=== PATIENT | male | born 1960 | race Caucasian/White ===

== ENCOUNTER 2024-03-31 18:59 | Inpatient (IN) | payer MEDICARE, OTHER ==
[~2024-03-31] VITALS: Ht 160 cm; Wt 78.2 kg
[2024-03-31 21:07] LABS: BASOPHILS % (AUTO) 0.6 % (0.0-2.0); EOSINOPHILS % (AUTO) 2.5 % (1.0-6.0); HEMATOCRIT 40.3 % (41-53); HEMOGLOBIN 13.8 g/dL (13.5-17.5); LYMPHOCYTES # (AUTO) 1.3 K/uL (1.0-4.8); LYMPHOCYTES % (AUTO) 20.5 % (22.0-44.0); MEAN CORPUSCULAR HEMOGLOBIN 31.6 pg (26.0-34.0); MEAN CORPUSCULAR HGB CONC 34.4 G/dL (31.0-37.0); MEAN CORPUSCULAR VOLUME 92 fL (80-100); MONOCYTES # (AUTO) 0.7 K/uL (0.1-1.0); MONOCYTES % (AUTO) 11.5 % (2.0-9.0); NEUTROPHILS % (AUTO) 64.9 % (40.0-70.0); PLATELET COUNT (AUTO) 173 K/uL (150-450); RED BLOOD CELL COUNT(AUTO) 4.39 MIL/uL (4.50-5.90); RED CELL DISTRIBUTION WIDTH 13.1 % (11.5-14.5); WHITE BLOOD COUNT (AUTO) 6.1 K/uL (4.5-11.0)
[2024-03-31 21:24] LABS: CALCIUM, TOTAL 8.4 mg/dL (8.8-10.5); CARBON DIOXIDE 29 mmol/L (22-29); CREATININE 1.13 mg/dL (0.60-1.30); GLOMERULAR FILTR. RATE CALC > 60 mL/min (>60); GLUCOSE,RANDOM 310 mg/dL (70-110); UREA NITROGEN, BLOOD 19 mg/dL (7-18)
[2024-03-31 21:30] LABS: ANION GAP 6 mmol/L (8-16); CHLORIDE 101 mmol/L (98-107); POTASSIUM 3.8 mmol/L (3.5-5.1); SODIUM SERUM 136 mmol/L (136-145)
[2024-03-31 21:41] LABS: ALCOHOL, BLOOD (SERUM) < 3 mg/dL (0-10)
[2024-03-31 21:47] LABS: SALICYLATE 0.8 mg/dL (2.8-20.0)
[2024-03-31 21:52] LABS: ACETAMINOPHEN < 2 mcg/mL (10-30)
[2024-03-31] MEDS ORDERED: LOPERAMIDE HCL 2 MG CAPSULE PO PRN (23:30)
[2024-03-31] MEDS ORDERED: ZOLPIDEM TARTRATE 10 MG TABLET PO PRN (23:30)
[2024-03-31] MEDS ORDERED: GuaiFENesin/D-METHORPHAN [SUGAR-FREE] 200-20MG/10 ML SYRUP UDCUP PO PRN (23:30)
[2024-03-31] MEDS ORDERED: HydrOXYzine PAMOATE 50 MG CAPSULE PO PRN (23:30)
[2024-03-31] MEDS ORDERED: TUBERCULIN, PURIFIED PROTEIN DERIVATIVE 5 TU/0.1 ML SYRINGE ID ONE (23:30)
[2024-03-31] MEDS ORDERED: MAGNESIUM HYDROXIDE SUSPENSION 30 ML UDCUP PO PRN (23:30)
[2024-03-31] MEDS ORDERED: ACETAMINOPHEN 325 MG TABLET PO PRN (23:30)
[2024-03-31] MEDS ORDERED: PROMETHAZINE HCL 25 MG TABLET PO PRN (23:30)
[2024-03-31] MEDS ORDERED: MAG HYDROX/ALUMINUM HYD/SIMETH ES 30 ML SUSPENSION UDCUP PO PRN (23:30)
[2024-03-31 23:38] LABS: PH,URINE DRUG SCREEN 6.5 (5.0-8.0)
[2024-03-31 23:46] LABS: AMPHET/METH SCREEN,URINE NEGATIVE (NEGATIVE); BARBITURATE SCREEN, URINE NEGATIVE (NEGATIVE); BENZODIAZEPINES SCREEN,URINE NEGATIVE (NEGATIVE); CANNABINOID SCREEN,URINE NEGATIVE (NEGATIVE); COCAINE SCREEN,URINE NEGATIVE (NEGATIVE); METHADONE SCREEN, URINE NEGATIVE (NEGATIVE); OPIATE SCREEN,URINE NEGATIVE (NEGATIVE); PHENCYCLIDINE SCREEN,URINE NEGATIVE (NEGATIVE)
[2024-03-31 23:49] LABS: ALCOHOL, URINE DRUG SCREEN NEGATIVE (NEGATIVE)
[2024-04-01 00:38] LABS: CHOL/HDL RATIO 3.1 (4.2-7.3); FREE T4 (FREE THYROXINE) 0.89 ng/dL (0.76-1.46); THYROID STIMULATING HORMONE 1.54 uIU/mL (0.36-3.74)
[2024-04-01 00:40] LABS: HEMOGLOBIN A1C 7.1 % (3.8-5.6)
[2024-04-01 06:18] LABS: COVID AG,FIA SOURCE NASAL SWAB
[2024-04-01 06:41] LABS: SARS-COV2 (COVID) ANTIGEN,FIA Negative (Negative)
[2024-04-01] MEDS: FOLIC ACID 1 MG TABLET PO SCH (08:24)
[2024-04-01] MEDS: THIAMINE 100 MG TABLET PO SCH (08:24)
[2024-04-01] MEDS: LORazepam 2 MG TABLET PO PRN (08:24)
[2024-04-01] MEDS: MULTIVITAMINS WITH MINERALS, THERAPEUTIC TABLET PO SCH (08:24)
[2024-04-01] MEDS: FLUoxetine HCL 20 MG CAPSULE PO SCH (09:32)
[2024-04-01] MEDS: NALTREXONE HCL 50 MG TABLET PO SCH (09:32)
[2024-04-01] MEDS ORDERED: TRIA60LO TP (10:48)
[2024-04-01] MEDS ORDERED: BUME2TAB PO (10:48)
[2024-04-01] MEDS ORDERED: HYDR-4061 PO (10:48)
[2024-04-01] MEDS ORDERED: HYDR25TA84 PO (10:48)
[2024-04-01] MEDS ORDERED: TRAM50TA5 PO (10:48)
[2024-04-01] MEDS ORDERED: BUSP15 PO (10:48)
[2024-04-01] MEDS ORDERED: VENL-193 PO (10:48)
[2024-04-01] MEDS ORDERED: CARV12.530 PO (10:48)
[2024-04-01] MEDS ORDERED: INSU100I56 SQ (10:48)
[2024-04-01] MEDS ORDERED: QUET25TA PO (10:48)
[2024-04-01] MEDS ORDERED: RISP0.2515 PO (10:48)
[2024-04-01] MEDS ORDERED: ENOX40DI9 SQ (10:48)
[2024-04-01] MEDS ORDERED: INSU100I94 SQ (10:48)
[2024-04-01] MEDS ORDERED: ZOLPIDEM TARTRATE 5 MG TABLET PO PRN (12:15)
[2024-04-01] MEDS ORDERED: MAGNESIUM HYDROXIDE SUSPENSION 30 ML UDCUP PO PRN (12:15)
[2024-04-01] MEDS ORDERED: DEXTROSE 50%-WATER 25 GM/50 ML SYRINGE IVP PRN (12:30)
[2024-04-01] MEDS: INSULIN LISPRO 100 UNITS/ML SQ PRN (15:14)
[2024-04-01] MEDS: HEPARIN SODIUM,PORCINE 5,000 UNITS/ML VIAL SQ SCH (15:15)
[2024-04-01 16:00] VITALS: BP 140/85; PULSE 55; RESP 18; TEMP 97.6; O2SAT 98
[2024-04-01 16:20] VITALS: BP 140/83; PULSE 55; RESP 18; TEMP 97.6; O2SAT 98
[2024-04-01 17:06] LABS: GLUCOMETER DEV NAME(LOC) ERT.6; GLUCOSE,POINT OF CARE 183 MG/DL (70-110)
[2024-04-01 20:10] VITALS: BP 169/96; PULSE 54; RESP 18; TEMP 97.8; O2SAT 97
[2024-04-01 21:30] VITALS: BP 140/87; PULSE 53; RESP 18; TEMP 98; O2SAT 97
[2024-04-01] MEDS: MELATONIN 5 MG TABLET PO SCH (21:35)
[2024-04-01] MEDS: OLANZapine 5 MG RAPDIS TABLET PO SCH (21:35)
[2024-04-01] MEDS: ACETAMINOPHEN 325 MG TABLET PO PRN (21:36)
[2024-04-01 21:51] LABS: GLUCOMETER DEV NAME(LOC) 5S.2D; GLUCOSE,POINT OF CARE 212 MG/DL (70-110)
[2024-04-02 00:30] VITALS: BP 108/72; PULSE 54; RESP 18; TEMP 97.1; O2SAT 97
[2024-04-02 04:46] VITALS: BP 143/79; PULSE 55; RESP 18; TEMP 97.8; O2SAT 96
[2024-04-02 06:49] LABS: BASOPHILS % (AUTO) 0.6 % (0.0-2.0); EOSINOPHILS % (AUTO) 2.6 % (1.0-6.0); HEMATOCRIT 39.8 % (41-53); HEMOGLOBIN 13.9 g/dL (13.5-17.5); LYMPHOCYTES # (AUTO) 1.4 K/uL (1.0-4.8); LYMPHOCYTES % (AUTO) 26.1 % (22.0-44.0); MEAN CORPUSCULAR HEMOGLOBIN 31.9 pg (26.0-34.0); MEAN CORPUSCULAR HGB CONC 34.9 G/dL (31.0-37.0); MEAN CORPUSCULAR VOLUME 91 fL (80-100); MONOCYTES # (AUTO) 0.6 K/uL (0.1-1.0); MONOCYTES % (AUTO) 11.6 % (2.0-9.0); NEUTROPHILS # (AUTO) 3.2 K/uL (1.8-7.7); NEUTROPHILS % (AUTO) 59.1 % (40.0-70.0); PLATELET COUNT (AUTO) 182 K/uL (150-450); RED BLOOD CELL COUNT(AUTO) 4.36 MIL/uL (4.50-5.90); WHITE BLOOD COUNT (AUTO) 5.5 K/uL (4.5-11.0)
[2024-04-02 06:53] LABS: ANION GAP 6 mmol/L (8-16); CALCIUM, TOTAL 8.5 mg/dL (8.8-10.5); CARBON DIOXIDE 27 mmol/L (22-29); CHLORIDE 105 mmol/L (98-107); CREATININE 1.06 mg/dL (0.60-1.30); GLOMERULAR FILTR. RATE CALC > 60 mL/min (>60); GLUCOSE,RANDOM 175 mg/dL (70-110); POTASSIUM 3.6 mmol/L (3.5-5.1); SODIUM SERUM 138 mmol/L (136-145); UREA NITROGEN, BLOOD 20 mg/dL (7-18)
[2024-04-02] MEDS: FAMOTIDINE 20 MG TABLET PO SCH (08:39)
[2024-04-02 08:43] VITALS: BP 118/75; PULSE 53; RESP 20; TEMP 97.7; O2SAT 94
[2024-04-02 11:16] LABS: GLUCOMETER DEV NAME(LOC) 5N.2C; GLUCOSE,POINT OF CARE 185 MG/DL (70-110)
[2024-04-02 12:23] VITALS: BP 107/64; PULSE 54; RESP 20; TEMP 97.4; O2SAT 97
[2024-04-02 15:23] VITALS: BP 172/75; PULSE 55; RESP 19; TEMP 97.8; O2SAT 98
[2024-04-02 17:36] LABS: GLUCOMETER DEV NAME(LOC) 5N.1D; GLUCOSE,POINT OF CARE 187 MG/DL (70-110)
[2024-04-02 17:36] LABS: GLUCOMETER DEV NAME(LOC) 5N.1D; GLUCOSE,POINT OF CARE 210 MG/DL (70-110)
[2024-04-02 17:36] LABS: GLUCOMETER DEV NAME(LOC) 5N.1D; GLUCOSE,POINT OF CARE 154 MG/DL (70-110)
[2024-04-02 19:28] VITALS: BP 140/78; PULSE 56; RESP 19; TEMP 97.4; O2SAT 97
[2024-04-02 23:11] LABS: GLUCOMETER DEV NAME(LOC) 5S.1C; GLUCOSE,POINT OF CARE 152 MG/DL (70-110)
[2024-04-03] VITALS (7 sets, daily range): BP systolic 108–169; BP diastolic 72–97; PULSE 55–81; RESP 18–19; TEMP 97.7–98.2; O2SAT 94–99
[2024-04-03 06:42] LABS: BASOPHILS % (AUTO) 0.5 % (0.0-2.0); HEMATOCRIT 42.2 % (41-53); HEMOGLOBIN 14.7 g/dL (13.5-17.5); LYMPHOCYTES # (AUTO) 1.5 K/uL (1.0-4.8); LYMPHOCYTES % (AUTO) 22.4 % (22.0-44.0); MEAN CORPUSCULAR HEMOGLOBIN 32.1 pg (26.0-34.0); MEAN CORPUSCULAR HGB CONC 34.8 G/dL (31.0-37.0); MEAN CORPUSCULAR VOLUME 92 fL (80-100); MONOCYTES # (AUTO) 0.6 K/uL (0.1-1.0); MONOCYTES % (AUTO) 8.3 % (2.0-9.0); NEUTROPHILS # (AUTO) 4.5 K/uL (1.8-7.7); NEUTROPHILS % (AUTO) 65.8 % (40.0-70.0); PLATELET COUNT (AUTO) 187 K/uL (150-450); RED BLOOD CELL COUNT(AUTO) 4.58 MIL/uL (4.50-5.90); RED CELL DISTRIBUTION WIDTH 12.9 % (11.5-14.5); WHITE BLOOD COUNT (AUTO) 6.8 K/uL (4.5-11.0)
[2024-04-03 06:45] LABS: ANION GAP 10 mmol/L (8-16); CALCIUM, TOTAL 8.6 mg/dL (8.8-10.5); CARBON DIOXIDE 27 mmol/L (22-29); CHLORIDE 104 mmol/L (98-107); CREATININE 1.17 mg/dL (0.60-1.30); GLOMERULAR FILTR. RATE CALC > 60 mL/min (>60); GLUCOSE,RANDOM 171 mg/dL (70-110); POTASSIUM 3.8 mmol/L (3.5-5.1); SODIUM SERUM 140 mmol/L (136-145); UREA NITROGEN, BLOOD 20 mg/dL (7-18)
[2024-04-03] MEDS: OLANZapine 5 MG RAPDIS TABLET PO PRN (08:32)
[2024-04-03 11:52] LABS: APPEARANCE,URINE CLEAR (CLEAR); BILIRUBIN,URINE NEGATIVE (NEGATIVE); COLOR,URINE LIGHT YELLOW (YELLOW); GLUCOSE, URINE (UA) NEGATIVE (NEGATIVE); KETONES,URINE NEGATIVE (NEGATIVE); LEUKOCYTE ESTERASE ,URINE LARGE (NEGATIVE); NITRATE,URINE NEGATIVE (NEGATIVE); OCCULT BLOOD,URINE TRACE (NEGATIVE); PH,URINE 6.5 (5.0-8.0); PROTEIN,URINE TRACE mg/dL (NEGATIVE); SPECIFIC GRAVITIY, URINE 1.012 (1.003-1.030); UROBILINOGEN,URINE <=1.0 mg/dL (<=1.0)
[2024-04-03 12:01] LABS: BACTERIA,URINE Moderate /HPF (None Seen)
[2024-04-03] MEDS ORDERED: SODIUM CHLORIDE 0.9% 500 ML IV ONE (13:23)
[2024-04-03] MEDS: CefTRIAXone 1 GM/DEXTROSE 50 ML IV SCH (13:44)
[2024-04-03 17:11] LABS: GLUCOMETER DEV NAME(LOC) 5S.1C; GLUCOSE,POINT OF CARE 175 MG/DL (70-110)
[2024-04-03 21:30] LABS: GLUCOMETER DEV NAME(LOC) 5S.2D; GLUCOSE,POINT OF CARE 216 MG/DL (70-110)
[2024-04-03 21:31] LABS: GLUCOMETER DEV NAME(LOC) 5S.2D; GLUCOSE,POINT OF CARE 167 MG/DL (70-110)
[2024-04-03 23:15] LABS: GLUCOMETER DEV NAME(LOC) 5S.1C; GLUCOSE,POINT OF CARE 168 MG/DL (70-110)
[2024-04-04 03:56] VITALS: BP 139/91; PULSE 68; RESP 18; TEMP 98; O2SAT 97
[2024-04-04] MEDS: DULoxetine HCL 20 MG CAPSULE PO SCH (08:13)
[2024-04-04 09:09] VITALS: BP 119/75; PULSE 69; RESP 19; TEMP 98.3; O2SAT 98
[2024-04-04 11:13] VITALS: BP 132/84; PULSE 70; RESP 19; TEMP 98.1; O2SAT 99
[2024-04-04 17:25] LABS: GLUCOMETER DEV NAME(LOC) 5S.1C; GLUCOSE,POINT OF CARE 155 MG/DL (70-110)
[2024-04-04 20:01] VITALS: BP 140/78; PULSE 71; RESP 19; TEMP 97.4; O2SAT 96
[2024-04-04 20:26] LABS: GLUCOMETER DEV NAME(LOC) 5S.2D; GLUCOSE,POINT OF CARE 236 MG/DL (70-110)
[2024-04-04 20:26] LABS: GLUCOMETER DEV NAME(LOC) 5S.2D; GLUCOSE,POINT OF CARE 134 MG/DL (70-110)
[2024-04-04] MEDS: CARVEDILOL 6.25 MG TABLET PO SCH (21:13)
[2024-04-05] VITALS (7 sets, daily range): BP systolic 121–156; BP diastolic 66–99; PULSE 68–88; RESP 16–19; TEMP 97.6–98.1; O2SAT 94–100
[2024-04-05] MEDS: ASPIRIN 81 MG CHEWABLE TABLET PO SCH (08:58)
[2024-04-05] MEDS: CIPROFLOXACIN HCL 250 MG TABLET PO SCH (11:58)
[2024-04-05 12:30] LABS: GLUCOMETER DEV NAME(LOC) 5N.2C; GLUCOSE,POINT OF CARE 219 MG/DL (70-110)
[2024-04-05 17:21] LABS: GLUCOMETER DEV NAME(LOC) 5N.2C; GLUCOSE,POINT OF CARE 205 MG/DL (70-110)
[2024-04-05 17:46] LABS: GLUCOMETER DEV NAME(LOC) 5S.1C; GLUCOSE,POINT OF CARE 258 MG/DL (70-110)
[2024-04-05 17:47] LABS: GLUCOMETER DEV NAME(LOC) 5S.1C; GLUCOSE,POINT OF CARE 141 MG/DL (70-110)
[2024-04-05 20:20] LABS: GLUCOMETER DEV NAME(LOC) 5N.1D; GLUCOSE,POINT OF CARE 210 MG/DL (70-110)
[2024-04-06 03:41] VITALS: BP 140/84; PULSE 73; RESP 19; TEMP 97.4; O2SAT 98
[2024-04-06 08:15] VITALS: BP 149/85; PULSE 71; RESP 18; TEMP 98.1; O2SAT 99
[2024-04-06 08:21] LABS: GLUCOMETER DEV NAME(LOC) 5N.2C; GLUCOSE,POINT OF CARE 149 MG/DL (70-110)
[2024-04-06 11:08] VITALS: BP 146/82; PULSE 76; RESP 19; TEMP 98.2; O2SAT 98
[2024-04-06 14:55] VITALS: BP 127/78; PULSE 78; RESP 16; TEMP 97.6; O2SAT 98
[2024-04-06 19:42] VITALS: BP 123/80; PULSE 64; RESP 18; TEMP 97.7; O2SAT 98
[2024-04-06 20:46] LABS: GLUCOMETER DEV NAME(LOC) 5S.2D; GLUCOSE,POINT OF CARE 176 MG/DL (70-110)
[2024-04-06 20:46] LABS: GLUCOMETER DEV NAME(LOC) 5S.2D; GLUCOSE,POINT OF CARE 142 MG/DL (70-110)
[2024-04-07 00:12] VITALS: BP 145/57; PULSE 74; RESP 17; TEMP 97.8; O2SAT 99
[2024-04-07 03:36] VITALS: BP 138/85; PULSE 68; RESP 18; TEMP 97.8; O2SAT 98
[2024-04-07 05:06] LABS: GLUCOMETER DEV NAME(LOC) 5N.2C; GLUCOSE,POINT OF CARE 172 MG/DL (70-110)
[2024-04-07 08:55] VITALS: BP 142/91; PULSE 70; RESP 18; TEMP 98.2; O2SAT 100
[2024-04-07 12:46] LABS: GLUCOMETER DEV NAME(LOC) 6S.1D; GLUCOSE,POINT OF CARE 147 MG/DL (70-110)
[2024-04-07 16:00] VITALS: BP 126/88; PULSE 70; RESP 16; TEMP 97.7; O2SAT 98
[2024-04-07 18:20] LABS: GLUCOMETER DEV NAME(LOC) 6S.1D; GLUCOSE,POINT OF CARE 178 MG/DL (70-110)
[2024-04-07 20:00] VITALS: BP 134/79; PULSE 67; RESP 16; TEMP 97.8; O2SAT 97
[2024-04-08 05:27] VITALS: BP 99/77; PULSE 71; RESP 18; TEMP 97.7; O2SAT 97
[2024-04-08 08:09] VITALS: BP 135/86; PULSE 68; RESP 18; TEMP 97.7; O2SAT 100
[2024-04-08 10:01] LABS: GLUCOMETER DEV NAME(LOC) 6S.1D; GLUCOSE,POINT OF CARE 190 MG/DL (70-110)
[2024-04-08 15:50] VITALS: BP 162/99; PULSE 66; RESP 18; TEMP 97.5; O2SAT 100
[2024-04-08 19:45] VITALS: BP 160/97; PULSE 71; RESP 20; TEMP 97.7; O2SAT 100
[2024-04-08 20:26] LABS: GLUCOMETER DEV NAME(LOC) 6S.2; GLUCOSE,POINT OF CARE 146 MG/DL (70-110)
[2024-04-09 00:31] LABS: GLUCOMETER DEV NAME(LOC) 6S.2; GLUCOSE,POINT OF CARE 204 MG/DL (70-110)
[2024-04-09 05:15] VITALS: BP 143/96; PULSE 75; RESP 20; TEMP 97.5; O2SAT 100
[2024-04-09 08:20] VITALS: BP 156/95; PULSE 69; RESP 19; TEMP 98.2; O2SAT 97
[2024-04-09 08:51] LABS: GLUCOMETER DEV NAME(LOC) 6S.1D; GLUCOSE,POINT OF CARE 112 MG/DL (70-110)
[2024-04-09 12:01] LABS: GLUCOMETER DEV NAME(LOC) 6S.2; GLUCOSE,POINT OF CARE 188 MG/DL (70-110)
[2024-04-09 16:15] VITALS: BP 142/88; PULSE 77; RESP 19; TEMP 98; O2SAT 100
[2024-04-09 18:36] LABS: GLUCOMETER DEV NAME(LOC) 6S.1D; GLUCOSE,POINT OF CARE 181 MG/DL (70-110)
[2024-04-09 19:33] VITALS: BP 139/86; PULSE 70; RESP 20; TEMP 97.6; O2SAT 100
[2024-04-10 05:21] LABS: GLUCOMETER DEV NAME(LOC) 6S.2; GLUCOSE,POINT OF CARE 177 MG/DL (70-110)
[2024-04-10 05:54] VITALS: BP 117/74; PULSE 71; RESP 18; TEMP 97.6; O2SAT 99
[2024-04-10 06:56] LABS: GLUCOMETER DEV NAME(LOC) 6S.2; GLUCOSE,POINT OF CARE 144 MG/DL (70-110)
[2024-04-10 08:00] VITALS: BP 136/83; PULSE 69; RESP 18; TEMP 97.7; O2SAT 100
[2024-04-10 09:26] LABS: GLUCOMETER DEV NAME(LOC) 6S.2; GLUCOSE,POINT OF CARE 161 MG/DL (70-110)
[2024-04-10 12:33] LABS: BASOPHILS % (AUTO) 0.3 % (0.0-2.0); EOSINOPHILS % (AUTO) 2.9 % (1.0-6.0); HEMATOCRIT 44.7 % (41-53); HEMOGLOBIN 15.2 g/dL (13.5-17.5); LYMPHOCYTES % (AUTO) 17.9 % (22.0-44.0); MEAN CORPUSCULAR HEMOGLOBIN 31.7 pg (26.0-34.0); MEAN CORPUSCULAR VOLUME 93 fL (80-100); MONOCYTES # (AUTO) 0.5 K/uL (0.1-1.0); MONOCYTES % (AUTO) 8.8 % (2.0-9.0); NEUTROPHILS % (AUTO) 70.1 % (40.0-70.0); PLATELET COUNT (AUTO) 170 K/uL (150-450); RED CELL DISTRIBUTION WIDTH 13.1 % (11.5-14.5); WHITE BLOOD COUNT (AUTO) 5.7 K/uL (4.5-11.0)
[2024-04-10 12:49] LABS: ANION GAP 8 mmol/L (8-16); CALCIUM, TOTAL 8.5 mg/dL (8.8-10.5); CARBON DIOXIDE 29 mmol/L (22-29); CHLORIDE 103 mmol/L (98-107); CREATININE 1.11 mg/dL (0.60-1.30); GLOMERULAR FILTR. RATE CALC > 60 mL/min (>60); GLUCOSE,RANDOM 141 mg/dL (70-110); POTASSIUM 4.2 mmol/L (3.5-5.1); SODIUM SERUM 140 mmol/L (136-145); UREA NITROGEN, BLOOD 24 mg/dL (7-18)
[2024-04-10 16:11] VITALS: BP 128/78; PULSE 65; RESP 18; TEMP 97.9; O2SAT 99
[2024-04-10 19:36] VITALS: BP 118/75; PULSE 72; RESP 18; TEMP 97.8; O2SAT 99
[2024-04-10] MEDS ORDERED: SODIUM CL IRRIG SOLN BOTTLE 250 ML IRRIG ONE (20:05)
[2024-04-11 04:34] VITALS: BP 113/73; PULSE 62; RESP 18; TEMP 97.7; O2SAT 99
[2024-04-11 08:00] VITALS: BP 133/71; PULSE 62; RESP 18; TEMP 97.9; O2SAT 99
[2024-04-11 16:00] VITALS: BP 128/74; PULSE 68; RESP 19; TEMP 98; O2SAT 100
[2024-04-11 17:30] LABS: GLUCOMETER DEV NAME(LOC) 6S.1D; GLUCOSE,POINT OF CARE 207 MG/DL (70-110)
[2024-04-11 19:16] LABS: GLUCOMETER DEV NAME(LOC) 6S.2; GLUCOSE,POINT OF CARE 148 MG/DL (70-110)
[2024-04-11 20:00] VITALS: BP 125/85; PULSE 72; RESP 18; TEMP 98.1; O2SAT 100
[2024-04-11 23:51] LABS: GLUCOMETER DEV NAME(LOC) 6S.2; GLUCOSE,POINT OF CARE 213 MG/DL (70-110)
[2024-04-12 04:55] VITALS: BP 127/68; PULSE 61; RESP 18; TEMP 97.5; O2SAT 96
[2024-04-12 08:00] VITALS: BP 144/84; PULSE 62; PULSE 88; RESP 15; RESP 16; TEMP 98.3; O2SAT 88; O2SAT 94; O2SAT 95
[2024-04-12 08:31] LABS: GLUCOMETER DEV NAME(LOC) 6S.2; GLUCOSE,POINT OF CARE 147 MG/DL (70-110)
[2024-04-12 14:10] LABS: GLUCOMETER DEV NAME(LOC) 6N.2B; GLUCOSE,POINT OF CARE 174 MG/DL (70-110)
[2024-04-12 16:20] VITALS: BP 141/77; PULSE 67; RESP 18; TEMP 96.4; O2SAT 99
[2024-04-12 18:26] LABS: GLUCOMETER DEV NAME(LOC) 6S.1D; GLUCOSE,POINT OF CARE 93 MG/DL (70-110)
[2024-04-12 20:20] VITALS: BP 138/76; PULSE 71; RESP 18; TEMP 97.8; O2SAT 96
[2024-04-13 01:31] LABS: GLUCOMETER DEV NAME(LOC) 6N.2B; GLUCOSE,POINT OF CARE 236 MG/DL (70-110)
[2024-04-13 05:54] VITALS: BP 136/70; PULSE 72; RESP 18; TEMP 97.8; O2SAT 96
[2024-04-13 07:00] VITALS: PULSE 85; RESP 16; O2SAT 95
[2024-04-13 07:00] LABS: GLUCOMETER DEV NAME(LOC) 6N.2B; GLUCOSE,POINT OF CARE 138 MG/DL (70-110)
[2024-04-13 08:10] VITALS: BP 135/86; PULSE 66; RESP 20; TEMP 98.6; O2SAT 100
[2024-04-13 11:40] LABS: GLUCOMETER DEV NAME(LOC) 6S.1D; GLUCOSE,POINT OF CARE 189 MG/DL (70-110)
[2024-04-13 15:10] VITALS: BP 130/82; PULSE 76; RESP 18; TEMP 97.9; O2SAT 100
[2024-04-13 20:27] VITALS: BP 140/74; PULSE 67; RESP 18; TEMP 97.7; O2SAT 97
[2024-04-13 22:16] LABS: GLUCOMETER DEV NAME(LOC) 4E.2; GLUCOSE,POINT OF CARE 113 MG/DL (70-110)
[2024-04-14 03:50] VITALS: BP 125/79; PULSE 75; RESP 18; TEMP 97.7; O2SAT 99
[2024-04-14 07:35] LABS: GLUCOMETER DEV NAME(LOC) 6N.2B; GLUCOSE,POINT OF CARE 151 MG/DL (70-110)
[2024-04-14 08:25] VITALS: BP 146/98; PULSE 66; RESP 18; TEMP 97.7; O2SAT 100
[2024-04-14 15:52] VITALS: BP 126/76; PULSE 75; RESP 18; TEMP 97.7; O2SAT 98
[2024-04-14 20:00] VITALS: BP 137/82; PULSE 73; RESP 18; TEMP 97.4; O2SAT 97
[2024-04-14 20:26] LABS: GLUCOMETER DEV NAME(LOC) 6N.2B; GLUCOSE,POINT OF CARE 221 MG/DL (70-110)
[2024-04-15 04:57] VITALS: BP 113/78; PULSE 73; RESP 16; TEMP 97.6; O2SAT 96
[2024-04-15 06:51] LABS: GLUCOMETER DEV NAME(LOC) 4E.2; GLUCOSE,POINT OF CARE 153 MG/DL (70-110)
[2024-04-15 06:51] LABS: GLUCOMETER DEV NAME(LOC) 4E.2; GLUCOSE,POINT OF CARE 128 MG/DL (70-110)
[2024-04-15 08:33] VITALS: BP 108/81; PULSE 77; RESP 18; TEMP 97.6; O2SAT 98
[2024-04-15 12:15] VITALS: BP 138/79; PULSE 71; O2SAT 100
[2024-04-15 12:25] LABS: GLUCOMETER DEV NAME(LOC) 4E.2; GLUCOSE,POINT OF CARE 216 MG/DL (70-110)
[2024-04-15 16:11] VITALS: BP 111/73; PULSE 69; RESP 17; TEMP 97.8; O2SAT 99
[2024-04-15 18:36] LABS: GLUCOMETER DEV NAME(LOC) 6N.2B; GLUCOSE,POINT OF CARE 132 MG/DL (70-110)
[2024-04-15 20:31] VITALS: BP 113/79; PULSE 71; RESP 19; TEMP 97.9; O2SAT 98
[2024-04-16 04:51] VITALS: BP 110/74; PULSE 79; RESP 18; TEMP 98; O2SAT 98
[2024-04-16 08:30] VITALS: BP 125/76; PULSE 70; RESP 18; TEMP 96.3; O2SAT 100
[2024-04-16 15:46] LABS: GLUCOMETER DEV NAME(LOC) 6N.1B; GLUCOSE,POINT OF CARE 97 MG/DL (70-110)
[2024-04-16 15:46] LABS: GLUCOMETER DEV NAME(LOC) 6N.1B; GLUCOSE,POINT OF CARE 122 MG/DL (70-110)
[2024-04-16 15:46] LABS: GLUCOMETER DEV NAME(LOC) 6N.1B; GLUCOSE,POINT OF CARE 165 MG/DL (70-110)
[2024-04-16 15:47] LABS: GLUCOMETER DEV NAME(LOC) 6N.1B; GLUCOSE,POINT OF CARE 119 MG/DL (70-110)
[2024-04-16 15:47] LABS: GLUCOMETER DEV NAME(LOC) 6N.1B; GLUCOSE,POINT OF CARE 123 MG/DL (70-110)
[2024-04-16 15:47] LABS: GLUCOMETER DEV NAME(LOC) 6N.1B; GLUCOSE,POINT OF CARE 150 MG/DL (70-110)
[2024-04-16 15:47] LABS: GLUCOMETER DEV NAME(LOC) 6N.1B; GLUCOSE,POINT OF CARE 129 MG/DL (70-110)
[2024-04-16 15:47] LABS: GLUCOMETER DEV NAME(LOC) 6N.1B; GLUCOSE,POINT OF CARE 243 MG/DL (70-110)
[2024-04-16 15:47] LABS: GLUCOMETER DEV NAME(LOC) 6N.1B; GLUCOSE,POINT OF CARE 129 MG/DL (70-110)
[2024-04-16 15:47] LABS: GLUCOMETER DEV NAME(LOC) 6N.1B; GLUCOSE,POINT OF CARE 216 MG/DL (70-110)
[2024-04-16 16:07] VITALS: BP 131/75; PULSE 72; RESP 18; TEMP 98.3; O2SAT 100
[2024-04-16 16:13] LABS: GLUCOMETER DEV NAME(LOC) 6N.1B; GLUCOSE,POINT OF CARE 97 MG/DL (70-110)
[2024-04-16 16:13] LABS: GLUCOMETER DEV NAME(LOC) 6N.1B; GLUCOSE,POINT OF CARE 122 MG/DL (70-110)
[2024-04-16 16:13] LABS: GLUCOMETER DEV NAME(LOC) 6N.1B; GLUCOSE,POINT OF CARE 165 MG/DL (70-110)
[2024-04-16 16:14] LABS: GLUCOMETER DEV NAME(LOC) 6N.1B; GLUCOSE,POINT OF CARE 243 MG/DL (70-110)
[2024-04-16 16:14] LABS: GLUCOMETER DEV NAME(LOC) 6N.1B; GLUCOSE,POINT OF CARE 150 MG/DL (70-110)
[2024-04-16 16:14] LABS: GLUCOMETER DEV NAME(LOC) 6N.1B; GLUCOSE,POINT OF CARE 129 MG/DL (70-110)
[2024-04-16 16:14] LABS: GLUCOMETER DEV NAME(LOC) 6N.1B; GLUCOSE,POINT OF CARE 129 MG/DL (70-110)
[2024-04-16 16:14] LABS: GLUCOMETER DEV NAME(LOC) 6N.1B; GLUCOSE,POINT OF CARE 119 MG/DL (70-110)
[2024-04-16 16:14] LABS: GLUCOMETER DEV NAME(LOC) 6N.1B; GLUCOSE,POINT OF CARE 123 MG/DL (70-110)
[2024-04-16 16:14] LABS: GLUCOMETER DEV NAME(LOC) 6N.1B; GLUCOSE,POINT OF CARE 216 MG/DL (70-110)
[2024-04-16 19:06] LABS: GLUCOMETER DEV NAME(LOC) 6N.2B; GLUCOSE,POINT OF CARE 202 MG/DL (70-110)
[2024-04-16 19:06] LABS: GLUCOMETER DEV NAME(LOC) 6N.2B; GLUCOSE,POINT OF CARE 178 MG/DL (70-110)
[2024-04-16 19:35] VITALS: BP 141/74; PULSE 68; RESP 18; TEMP 97.2; O2SAT 100
[2024-04-16 21:05] LABS: GLUCOMETER DEV NAME(LOC) 6N.1B; GLUCOSE,POINT OF CARE 141 MG/DL (70-110)
[2024-04-17 04:58] VITALS: BP 128/68; PULSE 70; RESP 18; TEMP 97.3; O2SAT 96
[2024-04-17 08:04] VITALS: BP 124/78; PULSE 71; RESP 18; TEMP 97.9; O2SAT 100
[2024-04-17 09:41] LABS: GLUCOMETER DEV NAME(LOC) 6N.2B; GLUCOSE,POINT OF CARE 145 MG/DL (70-110)
[2024-04-17 11:40] LABS: GLUCOMETER DEV NAME(LOC) 6S.1D; GLUCOSE,POINT OF CARE 159 MG/DL (70-110)
[2024-04-17 15:26] VITALS: BP 119/65; PULSE 68; RESP 18; TEMP 97.1; O2SAT 92
[2024-04-17 20:15] VITALS: BP 127/74; PULSE 74; RESP 18; TEMP 97.5; O2SAT 100
[2024-04-17 21:31] LABS: GLUCOMETER DEV NAME(LOC) 6N.2B; GLUCOSE,POINT OF CARE 292 MG/DL (70-110)
[2024-04-17 21:31] LABS: GLUCOMETER DEV NAME(LOC) 6N.2B; GLUCOSE,POINT OF CARE 155 MG/DL (70-110)
[2024-04-17 21:31] LABS: GLUCOMETER DEV NAME(LOC) 6N.2B; GLUCOSE,POINT OF CARE 159 MG/DL (70-110)
[2024-04-18 05:30] VITALS: BP 131/84; PULSE 75; RESP 20; TEMP 97.7; O2SAT 99
[2024-04-18 07:40] VITALS: BP 139/98; PULSE 75; RESP 18; TEMP 98; O2SAT 96
[2024-04-18 12:06] LABS: GLUCOMETER DEV NAME(LOC) 6S.2; GLUCOSE,POINT OF CARE 136 MG/DL (70-110)
[2024-04-18 12:30] LABS: GLUCOMETER DEV NAME(LOC) 6S.2; GLUCOSE,POINT OF CARE 273 MG/DL (70-110)
[2024-04-18 15:44] VITALS: BP 126/59; PULSE 69; RESP 18; TEMP 97.7; O2SAT 97
[2024-04-18 19:01] LABS: GLUCOMETER DEV NAME(LOC) 6S.2; GLUCOSE,POINT OF CARE 171 MG/DL (70-110)
[2024-04-18 20:15] VITALS: BP 133/67; PULSE 71; RESP 18; TEMP 97.5; O2SAT 100
[2024-04-19 01:25] LABS: GLUCOMETER DEV NAME(LOC) 6S.2; GLUCOSE,POINT OF CARE 186 MG/DL (70-110)
[2024-04-19 05:13] VITALS: BP 114/73; PULSE 70; RESP 18; TEMP 97.6; O2SAT 96
[2024-04-19 08:13] VITALS: BP 114/76; PULSE 73; RESP 18; TEMP 98.5; O2SAT 97
[2024-04-19 13:05] LABS: GLUCOMETER DEV NAME(LOC) 6N.2B; GLUCOSE,POINT OF CARE 128 MG/DL (70-110)
[2024-04-19 13:06] LABS: GLUCOMETER DEV NAME(LOC) 6N.2B; GLUCOSE,POINT OF CARE 270 MG/DL (70-110)
[2024-04-19 15:50] VITALS: BP 105/63; PULSE 76; RESP 17; TEMP 97.5; O2SAT 99
[2024-04-19 19:51] VITALS: BP 128/70; PULSE 73; RESP 18; TEMP 97.4; O2SAT 98
[2024-04-19 21:46] LABS: GLUCOMETER DEV NAME(LOC) 6S.2; GLUCOSE,POINT OF CARE 279 MG/DL (70-110)
[2024-04-19 21:46] LABS: GLUCOMETER DEV NAME(LOC) 6S.2; GLUCOSE,POINT OF CARE 313 MG/DL (70-110)
[2024-04-20 04:27] VITALS: BP 123/74; PULSE 72; RESP 18; TEMP 98; O2SAT 96
[2024-04-20 09:01] VITALS: BP 131/81; PULSE 74; RESP 20; TEMP 97.4; O2SAT 98
[2024-04-20 12:45] LABS: GLUCOMETER DEV NAME(LOC) 6S.2; GLUCOSE,POINT OF CARE 151 MG/DL (70-110)
[2024-04-20 12:45] LABS: GLUCOMETER DEV NAME(LOC) 6N.1B; GLUCOSE,POINT OF CARE 161 MG/DL (70-110)
[2024-04-20 16:25] VITALS: BP 127/68; PULSE 68; RESP 18; TEMP 97.4; O2SAT 96
[2024-04-20 17:56] LABS: GLUCOMETER DEV NAME(LOC) 6S.2; GLUCOSE,POINT OF CARE 253 MG/DL (70-110)
[2024-04-20 20:00] VITALS: BP 141/80; PULSE 74; RESP 18; TEMP 97.4; O2SAT 99
[2024-04-20 21:45] LABS: GLUCOMETER DEV NAME(LOC) 6S.2; GLUCOSE,POINT OF CARE 150 MG/DL (70-110)
[2024-04-21 04:00] VITALS: BP 134/84; PULSE 72; RESP 18; TEMP 97.7; O2SAT 97
[2024-04-21 06:51] LABS: GLUCOMETER DEV NAME(LOC) 6N.1B; GLUCOSE,POINT OF CARE 141 MG/DL (70-110)
[2024-04-21 08:01] VITALS: BP 113/76; PULSE 73; RESP 18; TEMP 97.8; O2SAT 100
[2024-04-21 15:26] VITALS: BP 127/83; PULSE 76; RESP 18; TEMP 97.8; O2SAT 100
[2024-04-21 20:00] VITALS: BP 131/84; PULSE 73; RESP 18; TEMP 97.7; O2SAT 97
[2024-04-21 21:55] LABS: GLUCOMETER DEV NAME(LOC) 6N.2B; GLUCOSE,POINT OF CARE 281 MG/DL (70-110)
[2024-04-21 21:56] LABS: GLUCOMETER DEV NAME(LOC) 6N.2B; GLUCOSE,POINT OF CARE 169 MG/DL (70-110)
[2024-04-21 21:56] LABS: GLUCOMETER DEV NAME(LOC) 6N.2B; GLUCOSE,POINT OF CARE 314 MG/DL (70-110)
[2024-04-22 04:50] VITALS: BP 140/78; PULSE 74; RESP 18; TEMP 97.7; O2SAT 100
[2024-04-22 07:11] LABS: GLUCOMETER DEV NAME(LOC) 6N.1B; GLUCOSE,POINT OF CARE 149 MG/DL (70-110)
[2024-04-22 08:26] VITALS: BP 109/77; PULSE 77; RESP 20; TEMP 98.1; O2SAT 96
[2024-04-22 15:20] VITALS: BP 108/71; PULSE 75; RESP 20; TEMP 97.5; O2SAT 100
[2024-04-22 17:31] LABS: GLUCOMETER DEV NAME(LOC) 6N.2B; GLUCOSE,POINT OF CARE 141 MG/DL (70-110)
[2024-04-22 17:31] LABS: GLUCOMETER DEV NAME(LOC) 6N.2B; GLUCOSE,POINT OF CARE 314 MG/DL (70-110)
[2024-04-22 20:43] VITALS: BP 111/62; PULSE 71; RESP 18; O2SAT 100
[2024-04-22 21:03] VITALS: BP 105/67; PULSE 73; RESP 18; TEMP 97.2
[2024-04-23 04:35] VITALS: BP 123/71; PULSE 64; RESP 18; TEMP 97.4; O2SAT 98
[2024-04-23 08:59] VITALS: BP 137/85; PULSE 74; RESP 19; TEMP 97.8; O2SAT 98
[2024-04-23 16:08] VITALS: BP 123/74; PULSE 61; RESP 19; TEMP 97.5; O2SAT 98
[2024-04-23 20:45] VITALS: BP 111/74; PULSE 74; RESP 18; TEMP 97.9; O2SAT 100
[2024-04-23 21:51] LABS: GLUCOMETER DEV NAME(LOC) 6N.2B; GLUCOSE,POINT OF CARE 217 MG/DL (70-110)
[2024-04-23 21:51] LABS: GLUCOMETER DEV NAME(LOC) 6N.2B; GLUCOSE,POINT OF CARE 169 MG/DL (70-110)
[2024-04-23 21:51] LABS: GLUCOMETER DEV NAME(LOC) 6N.2B; GLUCOSE,POINT OF CARE 150 MG/DL (70-110)
[2024-04-24 05:55] VITALS: BP 123/79; PULSE 70; RESP 18; TEMP 97.8; O2SAT 100
[2024-04-24 06:25] LABS: GLUCOMETER DEV NAME(LOC) 6S.2; GLUCOSE,POINT OF CARE 173 MG/DL (70-110)
[2024-04-24 07:20] LABS: GLUCOMETER DEV NAME(LOC) 4E.2; GLUCOSE,POINT OF CARE 162 MG/DL (70-110)
[2024-04-24 08:01] VITALS: BP 124/76; PULSE 70; RESP 18; TEMP 98.1; O2SAT 100
[2024-04-24 11:25] LABS: GLUCOMETER DEV NAME(LOC) 4E.2; GLUCOSE,POINT OF CARE 184 MG/DL (70-110)
[2024-04-24 16:27] VITALS: BP 129/78; PULSE 72; RESP 18; TEMP 97.7; O2SAT 100
[2024-04-24 16:51] LABS: APPEARANCE,URINE CLEAR (CLEAR); BILIRUBIN,URINE NEGATIVE (NEGATIVE); COLOR,URINE COLORLESS (YELLOW); GLUCOSE, URINE (UA) NEGATIVE (NEGATIVE); KETONES,URINE NEGATIVE (NEGATIVE); LEUKOCYTE ESTERASE ,URINE LARGE (NEGATIVE); NITRATE,URINE NEGATIVE (NEGATIVE); OCCULT BLOOD,URINE MODERATE (NEGATIVE); PH,URINE 6.5 (5.0-8.0); PROTEIN,URINE TRACE mg/dL (NEGATIVE); SPECIFIC GRAVITIY, URINE 1.004 (1.003-1.030); UROBILINOGEN,URINE <=1.0 mg/dL (<=1.0)
[2024-04-24 17:11] LABS: BACTERIA,URINE Rare /HPF (None Seen); RBC,URINE 0-2 /HPF (0-2)
[2024-04-24 18:15] LABS: GLUCOMETER DEV NAME(LOC) 6S.1D; GLUCOSE,POINT OF CARE 188 MG/DL (70-110)
[2024-04-24] MEDS ORDERED: FAMO20 PO (18:31)
[2024-04-24] MEDS ORDERED: ASPI-1450 PO (18:31)
[2024-04-24] MEDS ORDERED: MELA5TAB40 PO (18:31)
[2024-04-24] MEDS ORDERED: NA P133E4 PR (18:31)
[2024-04-24] MEDS ORDERED: ASCO500 PO (18:31)
[2024-04-24] MEDS ORDERED: POTA-364 PO (18:31)
[2024-04-24] MEDS ORDERED: NITR0.4T50 SL (18:31)
[2024-04-24] MEDS ORDERED: BISA10SU11 PR (18:31)
[2024-04-24] MEDS ORDERED: SENN-376 PO (18:31)
[2024-04-24] MEDS ORDERED: CHOL400T56 PO (18:31)
[2024-04-24] MEDS ORDERED: MAGN-169 PO (18:31)
[2024-04-24] MEDS ORDERED: ACET-2247 PO (18:31)
[2024-04-24 19:44] VITALS: BP 108/59; PULSE 63; RESP 18; TEMP 97.8; O2SAT 98
[2024-04-24] MEDS: PHENAZOPYRIDINE HCL 200 MG TABLET PO SCH (21:11)
[2024-04-24] MEDS: INSULIN GLARGINE,HUM.REC.ANLOG 100 UNITS/ML SQ SCH (21:18)
[2024-04-25 05:01] LABS: GLUCOMETER DEV NAME(LOC) 4E.2; GLUCOSE,POINT OF CARE 223 MG/DL (70-110)
[2024-04-25 06:10] VITALS: BP 117/72; PULSE 73; RESP 18; TEMP 97.7; O2SAT 98
[2024-04-25 07:45] LABS: GLUCOMETER DEV NAME(LOC) 4E.2; GLUCOSE,POINT OF CARE 170 MG/DL (70-110)
[2024-04-25 08:32] VITALS: BP 132/85; PULSE 73; RESP 20; TEMP 98; O2SAT 99
[2024-04-25 16:31] VITALS: BP 109/68; PULSE 62; RESP 18; TEMP 98.1; O2SAT 98
[2024-04-25 19:45] VITALS: BP 131/79; PULSE 73; RESP 18; TEMP 97.9; O2SAT 97
[2024-04-25 22:45] LABS: GLUCOMETER DEV NAME(LOC) 6S.1D; GLUCOSE,POINT OF CARE 302 MG/DL (70-110)
[2024-04-26 04:53] VITALS: BP 131/78; PULSE 70; RESP 18; TEMP 98.1; O2SAT 99
[2024-04-26 07:25] LABS: GLUCOMETER DEV NAME(LOC) 4E.2; GLUCOSE,POINT OF CARE 154 MG/DL (70-110)
[2024-04-26 09:15] VITALS: BP 119/82; PULSE 76; RESP 18; TEMP 98.4; O2SAT 92
[2024-04-26 11:36] LABS: GLUCOMETER DEV NAME(LOC) 4E.2; GLUCOSE,POINT OF CARE 232 MG/DL (70-110)
[2024-04-26 20:42] VITALS: BP 116/65; PULSE 64; RESP 18; TEMP 98.2; O2SAT 98
[2024-04-26 23:15] LABS: GLUCOMETER DEV NAME(LOC) 4E.2; GLUCOSE,POINT OF CARE 245 MG/DL (70-110)
[2024-04-26 23:15] LABS: GLUCOMETER DEV NAME(LOC) 4E.2; GLUCOSE,POINT OF CARE 192 MG/DL (70-110)
[2024-04-27 05:04] VITALS: BP 121/83; PULSE 77; RESP 18; TEMP 97.2; O2SAT 100
[2024-04-27 08:19] VITALS: BP 123/73; PULSE 71; RESP 20; TEMP 97.9; O2SAT 100
[2024-04-27 13:46] LABS: GLUCOMETER DEV NAME(LOC) 4E.2; GLUCOSE,POINT OF CARE 141 MG/DL (70-110)
[2024-04-27 13:46] LABS: GLUCOMETER DEV NAME(LOC) 4E.2; GLUCOSE,POINT OF CARE 247 MG/DL (70-110)
[2024-04-27 19:45] VITALS: BP 143/80; PULSE 68; RESP 20; TEMP 97.6; O2SAT 100
[2024-04-28 04:57] VITALS: BP 119/78; PULSE 62; RESP 18; TEMP 97.7; O2SAT 99
[2024-04-28 11:36] LABS: GLUCOMETER DEV NAME(LOC) 6S.1D; GLUCOSE,POINT OF CARE 294 MG/DL (70-110)
[2024-04-28 12:25] LABS: GLUCOMETER DEV NAME(LOC) 4E.2; GLUCOSE,POINT OF CARE 209 MG/DL (70-110)
[2024-04-28 12:25] LABS: GLUCOMETER DEV NAME(LOC) 4E.2; GLUCOSE,POINT OF CARE 139 MG/DL (70-110)
[2024-04-28 12:40] LABS: GLUCOMETER DEV NAME(LOC) 6S.1D; GLUCOSE,POINT OF CARE 189 MG/DL (70-110)
[2024-04-28 20:21] LABS: GLUCOMETER DEV NAME(LOC) 6S.1D; GLUCOSE,POINT OF CARE 202 MG/DL (70-110)
[2024-04-28 20:50] VITALS: BP 97/76; PULSE 73; RESP 18; TEMP 97.7; O2SAT 100
[2024-04-29 05:59] VITALS: BP 141/83; PULSE 69; RESP 18; TEMP 98.1; O2SAT 100
[2024-04-29 06:01] LABS: GLUCOMETER DEV NAME(LOC) 4E.2; GLUCOSE,POINT OF CARE 267 MG/DL (70-110)
[2024-04-29 08:00] VITALS: BP 141/75; PULSE 72; RESP 18; TEMP 97.3; O2SAT 99
[2024-04-29] MEDS: ETHYL ALCOHOL 62% ANTISEPTIC NASAL SANITIZER 0.6 ML AMPUL NASAL SCH (09:30)
[2024-04-29 12:10] LABS: GLUCOMETER DEV NAME(LOC) 6S.1D; GLUCOSE,POINT OF CARE 132 MG/DL (70-110)
[2024-04-29 17:20] LABS: GLUCOMETER DEV NAME(LOC) 6S.1D; GLUCOSE,POINT OF CARE 207 MG/DL (70-110)
[2024-04-29 19:39] VITALS: BP 117/88; PULSE 67; RESP 18; TEMP 97.6; O2SAT 100
[2024-04-30 04:53] VITALS: BP 116/67; PULSE 73; RESP 18; TEMP 97.9; O2SAT 100
[2024-04-30 07:39] VITALS: BP 124/75; PULSE 67; RESP 18; TEMP 97.8; O2SAT 98
[2024-04-30 08:20] LABS: GLUCOMETER DEV NAME(LOC) 4E.2; GLUCOSE,POINT OF CARE 95 MG/DL (70-110)
[2024-04-30 11:50] LABS: GLUCOMETER DEV NAME(LOC) 6S.1D; GLUCOSE,POINT OF CARE 164 MG/DL (70-110)
[2024-04-30 11:50] LABS: GLUCOMETER DEV NAME(LOC) 6S.1D; GLUCOSE,POINT OF CARE 223 MG/DL (70-110)
[2024-04-30 15:07] VITALS: BP 117/72; PULSE 74; RESP 18; TEMP 97.6; O2SAT 99
[2024-04-30 20:28] VITALS: BP 104/71; PULSE 73; RESP 18; TEMP 97.8; O2SAT 98
[2024-04-30 23:41] LABS: GLUCOMETER DEV NAME(LOC) 4E.2; GLUCOSE,POINT OF CARE 159 MG/DL (70-110)
[2024-04-30 23:41] LABS: GLUCOMETER DEV NAME(LOC) 4E.2; GLUCOSE,POINT OF CARE 159 MG/DL (70-110)
[2024-04-30 23:41] LABS: GLUCOMETER DEV NAME(LOC) 4E.2; GLUCOSE,POINT OF CARE 156 MG/DL (70-110)
[2024-05-01 05:25] LABS: GLUCOMETER DEV NAME(LOC) 4E.2; GLUCOSE,POINT OF CARE 181 MG/DL (70-110)
[2024-05-01 05:55] VITALS: BP 122/78; PULSE 69; RESP 18; TEMP 97.7; O2SAT 99
[2024-05-01 07:55] VITALS: BP 133/78; PULSE 67; RESP 18; TEMP 98; O2SAT 98
[2024-05-01 19:30] VITALS: BP 135/75; PULSE 72; RESP 18; TEMP 97.5; O2SAT 97
[2024-05-02 04:14] VITALS: BP 106/66; PULSE 65; RESP 18; TEMP 97.4; O2SAT 98
[2024-05-02 06:16] LABS: GLUCOMETER DEV NAME(LOC) 4E.2; GLUCOSE,POINT OF CARE 135 MG/DL (70-110)
[2024-05-02 06:16] LABS: GLUCOMETER DEV NAME(LOC) 4E.2; GLUCOSE,POINT OF CARE 244 MG/DL (70-110)
[2024-05-02 06:16] LABS: GLUCOMETER DEV NAME(LOC) 4E.2; GLUCOSE,POINT OF CARE 227 MG/DL (70-110)
[2024-05-02 07:31] LABS: ALBUMIN 3.1 g/dL (3.4-5.0); BILIRUBIN,TOTAL 0.3 mg/dL (0.1-1.0); CALCIUM, TOTAL 8.8 mg/dL (8.8-10.5); CREATININE 1.31 mg/dL (0.60-1.30); POTASSIUM 4.2 mmol/L (3.5-5.1); TOTAL PROTEIN, SERUM 7.2 g/dL (6.4-8.2)
[2024-05-02 08:09] VITALS: BP 115/73; PULSE 73; RESP 18; TEMP 97.7; O2SAT 100
[2024-05-02 09:40] LABS: BASOPHILS % (AUTO) 0.4 % (0.0-2.0); EOSINOPHILS % (AUTO) 4.1 % (1.0-6.0); HEMATOCRIT 40.7 % (41-53); HEMOGLOBIN 13.7 g/dL (13.5-17.5); LYMPHOCYTES % (AUTO) 17.3 % (22.0-44.0); MEAN CORPUSCULAR HEMOGLOBIN 31.3 pg (26.0-34.0); MEAN CORPUSCULAR HGB CONC 33.7 G/dL (31.0-37.0); MEAN CORPUSCULAR VOLUME 93 fL (80-100); MONOCYTES # (AUTO) 0.5 K/uL (0.1-1.0); MONOCYTES % (AUTO) 8.8 % (2.0-9.0); NEUTROPHILS # (AUTO) 4.1 K/uL (1.8-7.7); NEUTROPHILS % (AUTO) 69.4 % (40.0-70.0); PLATELET COUNT (AUTO) 163 K/uL (150-450); RED BLOOD CELL COUNT(AUTO) 4.38 MIL/uL (4.50-5.90); RED CELL DISTRIBUTION WIDTH 13.1 % (11.5-14.5)
[2024-05-02] MEDS: SODIUM CHLORIDE 0.9% 500 ML IV ONE (12:26)
[2024-05-02 12:46] LABS: GLUCOMETER DEV NAME(LOC) 4E.2; GLUCOSE,POINT OF CARE 153 MG/DL (70-110)
[2024-05-02 12:46] LABS: GLUCOMETER DEV NAME(LOC) 4E.2; GLUCOSE,POINT OF CARE 267 MG/DL (70-110)
[2024-05-02 15:21] VITALS: BP 114/74; PULSE 71; RESP 20; TEMP 97.8; O2SAT 100
[2024-05-02 16:56] LABS: GLUCOMETER DEV NAME(LOC) 4E.2; GLUCOSE,POINT OF CARE 180 MG/DL (70-110)
[2024-05-02 19:22] VITALS: BP 122/84; PULSE 80; RESP 18; TEMP 97.7; O2SAT 99
[2024-05-03 05:47] VITALS: BP 127/73; PULSE 66; RESP 18; TEMP 97; O2SAT 98
[2024-05-03 06:23] LABS: BASOPHILS % (AUTO) 0.5 % (0.0-2.0); EOSINOPHILS % (AUTO) 4.2 % (1.0-6.0); HEMATOCRIT 41.8 % (41-53); HEMOGLOBIN 14.6 g/dL (13.5-17.5); LYMPHOCYTES # (AUTO) 1.2 K/uL (1.0-4.8); LYMPHOCYTES % (AUTO) 18.7 % (22.0-44.0); MEAN CORPUSCULAR HEMOGLOBIN 32.1 pg (26.0-34.0); MEAN CORPUSCULAR HGB CONC 34.8 G/dL (31.0-37.0); MEAN CORPUSCULAR VOLUME 92 fL (80-100); MONOCYTES # (AUTO) 0.6 K/uL (0.1-1.0); MONOCYTES % (AUTO) 9.1 % (2.0-9.0); NEUTROPHILS # (AUTO) 4.2 K/uL (1.8-7.7); NEUTROPHILS % (AUTO) 67.5 % (40.0-70.0); PLATELET COUNT (AUTO) 174 K/uL (150-450); RED BLOOD CELL COUNT(AUTO) 4.54 MIL/uL (4.50-5.90); WHITE BLOOD COUNT (AUTO) 6.2 K/uL (4.5-11.0)
[2024-05-03 06:31] LABS: ANION GAP 11 mmol/L (8-16); CALCIUM, TOTAL 8.8 mg/dL (8.8-10.5); CARBON DIOXIDE 25 mmol/L (22-29); CHLORIDE 106 mmol/L (98-107); CREATININE 1.16 mg/dL (0.60-1.30); GLOMERULAR FILTR. RATE CALC > 60 mL/min (>60); GLUCOSE,RANDOM 125 mg/dL (70-110); POTASSIUM 4.1 mmol/L (3.5-5.1); SODIUM SERUM 142 mmol/L (136-145); UREA NITROGEN, BLOOD 19 mg/dL (7-18)
[2024-05-03 07:52] VITALS: BP 108/63; PULSE 67; RESP 18; TEMP 98; O2SAT 98
[2024-05-03 11:40] LABS: GLUCOMETER DEV NAME(LOC) 4E.2; GLUCOSE,POINT OF CARE 272 MG/DL (70-110)
[2024-05-03 11:41] LABS: GLUCOMETER DEV NAME(LOC) 4E.2; GLUCOSE,POINT OF CARE 131 MG/DL (70-110)
[2024-05-03 14:36] LABS: GLUCOMETER DEV NAME(LOC) 6S.1D; GLUCOSE,POINT OF CARE 261 MG/DL (70-110)
[2024-05-03 14:51] VITALS: BP 115/78; PULSE 70; RESP 16; TEMP 97.4; O2SAT 100
[2024-05-03 19:35] VITALS: BP 126/71; PULSE 67; RESP 18; TEMP 98; O2SAT 97
[2024-05-03 20:30] LABS: GLUCOMETER DEV NAME(LOC) 4E.2; GLUCOSE,POINT OF CARE 132 MG/DL (70-110)
[2024-05-03 22:26] LABS: GLUCOMETER DEV NAME(LOC) 4E.2; GLUCOSE,POINT OF CARE 193 MG/DL (70-110)
[2024-05-04 05:15] VITALS: BP 117/73; PULSE 64; RESP 18; TEMP 98.1; O2SAT 98
[2024-05-04 06:21] LABS: GLUCOMETER DEV NAME(LOC) 4E.2; GLUCOSE,POINT OF CARE 182 MG/DL (70-110)
[2024-05-04 07:38] VITALS: BP 138/85; PULSE 71; RESP 20; TEMP 98; O2SAT 100
[2024-05-04 16:28] VITALS: BP 101/52; PULSE 64; RESP 20; TEMP 97.6; O2SAT 95
[2024-05-04 20:33] VITALS: BP 136/76; PULSE 73; RESP 20; TEMP 97.9; O2SAT 99
[2024-05-04 21:05] LABS: GLUCOMETER DEV NAME(LOC) 6S.1D; GLUCOSE,POINT OF CARE 200 MG/DL (70-110)
[2024-05-05 01:30] LABS: GLUCOMETER DEV NAME(LOC) 4E.2; GLUCOSE,POINT OF CARE 232 MG/DL (70-110)
[2024-05-05 01:30] LABS: GLUCOMETER DEV NAME(LOC) 4E.2; GLUCOSE,POINT OF CARE 169 MG/DL (70-110)
[2024-05-05 04:19] VITALS: BP 106/68; PULSE 65; RESP 18; TEMP 97.7; O2SAT 65
[2024-05-05 07:35] LABS: GLUCOMETER DEV NAME(LOC) 4E.2; GLUCOSE,POINT OF CARE 142 MG/DL (70-110)
[2024-05-05 08:06] VITALS: BP 127/84; PULSE 75; RESP 18; TEMP 97.9; O2SAT 96
[2024-05-05 16:01] VITALS: BP 119/73; PULSE 66; RESP 18; TEMP 97.7; O2SAT 98
[2024-05-05 19:25] VITALS: BP 125/70; PULSE 75; RESP 18; TEMP 97.7; O2SAT 100
[2024-05-05 21:16] LABS: GLUCOMETER DEV NAME(LOC) 6S.1D; GLUCOSE,POINT OF CARE 254 MG/DL (70-110)
[2024-05-05 21:16] LABS: GLUCOMETER DEV NAME(LOC) 6S.1D; GLUCOSE,POINT OF CARE 266 MG/DL (70-110)
[2024-05-06 04:00] VITALS: BP 116/69; PULSE 72; RESP 18; TEMP 97.7; O2SAT 97
[2024-05-06 07:49] VITALS: BP 128/71; PULSE 73; RESP 18; TEMP 97.4; O2SAT 97
[2024-05-06 12:11] LABS: GLUCOMETER DEV NAME(LOC) 4E.2; GLUCOSE,POINT OF CARE 245 MG/DL (70-110)
[2024-05-06 12:11] LABS: GLUCOMETER DEV NAME(LOC) 4E.2; GLUCOSE,POINT OF CARE 127 MG/DL (70-110)
[2024-05-06 15:29] VITALS: BP 110/74; PULSE 71; RESP 18; TEMP 98; O2SAT 97
[2024-05-06 17:30] LABS: GLUCOMETER DEV NAME(LOC) 4E.2; GLUCOSE,POINT OF CARE 167 MG/DL (70-110)
[2024-05-06 19:17] VITALS: BP 113/68; PULSE 73; RESP 18; TEMP 97.4; O2SAT 98
[2024-05-07 04:32] VITALS: BP 103/68; PULSE 59; RESP 18; TEMP 97.5; O2SAT 98
[2024-05-07 05:26] LABS: GLUCOMETER DEV NAME(LOC) 6S.1D; GLUCOSE,POINT OF CARE 131 MG/DL (70-110)
[2024-05-07 08:03] VITALS: BP 118/80; PULSE 61; RESP 18; TEMP 97.7; O2SAT 99
[2024-05-07 16:32] VITALS: BP 106/60; PULSE 72; RESP 18; TEMP 97.4; O2SAT 97
[2024-05-07 19:35] VITALS: BP 121/72; PULSE 74; RESP 18; TEMP 97.6; O2SAT 100
[2024-05-08 04:46] VITALS: BP 132/74; PULSE 71; RESP 18; TEMP 97.5; O2SAT 100
[2024-05-08 15:52] VITALS: BP 138/70; PULSE 77; RESP 18; TEMP 98.2; O2SAT 100
[2024-05-08 21:12] VITALS: BP 124/75; PULSE 74; RESP 18; TEMP 97.9; O2SAT 95
[2024-05-09 05:08] VITALS: BP 114/73; PULSE 74; RESP 18; TEMP 97.6; O2SAT 97
[2024-05-09 08:14] VITALS: BP 129/87; PULSE 75; RESP 18; TEMP 97.6; O2SAT 98
[2024-05-09 15:36] VITALS: BP 102/69; PULSE 71; RESP 19; TEMP 97.6; O2SAT 98
[2024-05-09 20:00] VITALS: BP 111/78; PULSE 71; RESP 18; TEMP 97.4; O2SAT 100
[2024-05-10 07:31] VITALS: BP 121/75; PULSE 75; RESP 18; TEMP 97.6; O2SAT 100
[2024-05-10 12:11] LABS: GLUCOMETER DEV NAME(LOC) 4E.2; GLUCOSE,POINT OF CARE 126 MG/DL (70-110)
[2024-05-10 12:11] LABS: GLUCOMETER DEV NAME(LOC) 4E.2; GLUCOSE,POINT OF CARE 157 MG/DL (70-110)
[2024-05-10 12:11] LABS: GLUCOMETER DEV NAME(LOC) 4E.2; GLUCOSE,POINT OF CARE 196 MG/DL (70-110)
[2024-05-10 12:12] LABS: GLUCOMETER DEV NAME(LOC) 4E.2; GLUCOSE,POINT OF CARE 112 MG/DL (70-110)
[2024-05-10 12:12] LABS: GLUCOMETER DEV NAME(LOC) 4E.2; GLUCOSE,POINT OF CARE 210 MG/DL (70-110)
[2024-05-10 12:12] LABS: GLUCOMETER DEV NAME(LOC) 4E.2; GLUCOSE,POINT OF CARE 219 MG/DL (70-110)
[2024-05-10 12:12] LABS: GLUCOMETER DEV NAME(LOC) 4E.2; GLUCOSE,POINT OF CARE 175 MG/DL (70-110)
[2024-05-10 12:12] LABS: GLUCOMETER DEV NAME(LOC) 6S.1D; GLUCOSE,POINT OF CARE 133 MG/DL (70-110)
[2024-05-10 12:12] LABS: GLUCOMETER DEV NAME(LOC) 6S.1D; GLUCOSE,POINT OF CARE 137 MG/DL (70-110)
[2024-05-10 12:12] LABS: GLUCOMETER DEV NAME(LOC) 4E.2; GLUCOSE,POINT OF CARE 114 MG/DL (70-110)
[2024-05-10 12:12] LABS: GLUCOMETER DEV NAME(LOC) 4E.2; GLUCOSE,POINT OF CARE 259 MG/DL (70-110)
[2024-05-10 12:12] LABS: GLUCOMETER DEV NAME(LOC) 4E.2; GLUCOSE,POINT OF CARE 143 MG/DL (70-110)
[2024-05-10 12:12] LABS: GLUCOMETER DEV NAME(LOC) 4E.2; GLUCOSE,POINT OF CARE 178 MG/DL (70-110)
[2024-05-10 12:12] LABS: GLUCOMETER DEV NAME(LOC) 6S.1D; GLUCOSE,POINT OF CARE 141 MG/DL (70-110)
[2024-05-10 15:46] VITALS: BP 104/75; PULSE 70; RESP 18; TEMP 97.5; O2SAT 97
[2024-05-10 18:11] LABS: GLUCOMETER DEV NAME(LOC) 6N.1B; GLUCOSE,POINT OF CARE 118 MG/DL (70-110)
[2024-05-10 18:11] LABS: GLUCOMETER DEV NAME(LOC) 6N.1B; GLUCOSE,POINT OF CARE 186 MG/DL (70-110)
[2024-05-10 21:00] VITALS: BP 119/72; PULSE 75; RESP 18; TEMP 97.5; O2SAT 96
[2024-05-11 05:36] VITALS: BP 126/59; PULSE 70; RESP 18; TEMP 97.8; O2SAT 97
[2024-05-11 07:56] VITALS: BP 100/65; PULSE 65; RESP 18; TEMP 97.8; O2SAT 96
[2024-05-11 11:56] LABS: GLUCOMETER DEV NAME(LOC) 4E.2; GLUCOSE,POINT OF CARE 218 MG/DL (70-110)
[2024-05-11 11:56] LABS: GLUCOMETER DEV NAME(LOC) 4E.2; GLUCOSE,POINT OF CARE 106 MG/DL (70-110)
[2024-05-11 11:56] LABS: GLUCOMETER DEV NAME(LOC) 4E.2; GLUCOSE,POINT OF CARE 238 MG/DL (70-110)
[2024-05-11 15:37] VITALS: BP 106/76; PULSE 72; RESP 18; TEMP 97.9; O2SAT 98
[2024-05-11 20:32] VITALS: BP 118/72; PULSE 70; RESP 18; TEMP 97.5; O2SAT 97
[2024-05-12 05:07] VITALS: BP 132/79; PULSE 76; RESP 19; TEMP 98.2; O2SAT 100
[2024-05-12 08:06] VITALS: BP 131/87; PULSE 67; RESP 18; O2SAT 100
[2024-05-12 16:39] VITALS: BP 126/88; PULSE 71; RESP 20; TEMP 98.2; O2SAT 100
== END 2024-05-12 18:40 | DRG 698 ==
LOC: EMS 18:59 → UNDOADMIN 04-01 00:08 → 3EI 04-01 00:08 → EDBEDREQSVC 04-01 10:47 → EDBEDREQ 04-01 10:47 → EDBEDREQTM 04-01 10:47 → EDH 04-01 12:15 → 5S 04-01 15:50 → 6N 04-07 03:25 → 6S 04-11 19:49 → 4E 04-23 22:32
PROVIDERS: ADMIT Internal Medicine; ATTEND Internal Medicine
DX: N31.9 Neuromuscular dysfunction of bladder, unspecified (principal); E43 Unspecified severe protein-calorie malnutrition; G82.50 Quadriplegia, unspecified; J96.01 Acute respiratory failure with hypoxia; J69.0 Pneumonitis due to inhalation of food and vomit; N39.0 Urinary tract infection, site not specified; I16.1 Hypertensive emergency; I44.2 Atrioventricular block, complete; N17.9 Acute kidney failure, unspecified; R45.851 Suicidal ideations; I50.30 Unspecified diastolic (congestive) heart failure; Z93.0 Tracheostomy status; Z20.822 Contact with and (suspected) exposure to COVID-19; E11.40 Type 2 diabetes mellitus with diabetic neuropathy, unspecified; F32.9 Major depressive disorder, single episode, unspecified; Z95.2 Presence of prosthetic heart valve; I34.0 Nonrheumatic mitral (valve) insufficiency; I48.91 Unspecified atrial fibrillation; I11.0 Hypertensive heart disease with heart failure; R13.10 Dysphagia, unspecified; E11.65 Type 2 diabetes mellitus with hyperglycemia; E78.5 Hyperlipidemia, unspecified; I27.20 Pulmonary hypertension, unspecified; J84.10 Pulmonary fibrosis, unspecified; K21.9 Gastro-esophageal reflux disease without esophagitis; E87.6 Hypokalemia; Z68.30 Body mass index [BMI] 30.0-30.9, adult; Z79.82 Long term (current) use of aspirin; Z79.899 Other long term (current) drug therapy; Z83.3 Family history of diabetes mellitus; Z86.16 Personal history of COVID-19
CPT/HCPCS: 70490; 71045; 71250; 80048; 80053; 80061; 80307; 81001; 82962; 83036; 83735; 84439; 84443; 85025; 86592; 87077; 87081; 87086; 87186; 87481; 93005; 93306; 97116; 97162; 97530; 99285; G0378; G0480; G0481; J0696; J1644; J1815; J7040; 36415-L1; 36415-TC